=== PATIENT | male | born 1980 | race Caucasian/White ===

== ENCOUNTER 2020-06-23 09:49 | Emergency (ER) | payer MEDICAID ==
[~2020-06-23] VITALS: Ht 175.3 cm; Wt 85.0 kg
[2020-06-23 10:32] LABS: BASOPHILS % (AUTO) 0.6 % (0-1); EOSINOPHILS # (AUTO) 0.1 X10'3 (0-0.9); EOSINOPHILS % (AUTO) 2.2 % (0-6); HEMATOCRIT 39.4 % (42.0-52.0); HEMOGLOBIN 13.1 g/dl (14.0-17.9); LYMPHOCYTES # (AUTO) 1.2 X10'3 (1.1-4.8); LYMPHOCYTES % (AUTO) 22.9 % (21-51); MEAN CORPUSCULAR HGB CONC 33.2 g/dL (33.0-36.5); MEAN CORPUSCULAR VOLUME 87.2 FL (78-98); MONOCYTES # (AUTO) 0.7 X10'3 (0-0.9); NEUTROPHILS # (AUTO) 3.2 X10'3 (1.8-7.7); NEUTROPHILS % (AUTO) 61.3 % (42-75); PLATELET COUNT 228 X10'3 (140-440); RED BLOOD COUNT 4.52 X10'6 (4.70-6.10); RED CELL DISTRIBUTION WIDTH 13.8 % (11.5-14.5); WHITE BLOOD COUNT 5.2 X10'3 (4.5-11.0)
[2020-06-23] MEDS ORDERED: normal saline 1000ML IV soln IV ONE (10:35)
[2020-06-23 10:53] LABS: ALANINE AMINOTRANSFERASE 37 U/L (12-78); ALBUMIN 3.4 G/DL (3.4-5.0); ALBUMIN/GLOBULIN RATIO 1.2 (1.1-1.5); ALKALINE PHOSPHATASE 82 IU/L (46-116); ANION GAP 6 (8-16); ASPARTATE AMINO TRANSFERASE 34 U/L (10-37); BILIRUBIN,TOTAL 0.2 MG/DL (0.1-1.0); BLOOD UREA NITROGEN 10 MG/DL (7-18); BUN/CREATININE RATIO 11.5 (5.4-32.0); CALCIUM 8.3 MG/DL (8.5-10.1); CHLORIDE 107 MMOL/L (99-107); CREATININE 0.87 MG/DL (0.60-1.10); GLUCOSE 95 MG/DL (70-104); POTASSIUM 3.5 MMOL/L (3.5-5.1); SODIUM 143 MMOL/L (135-145); TOTAL CARBON DIOXIDE 30.3 MMOL/L (24-32); TOTAL PROTEIN 6.3 G/DL (6.4-8.2); eGFR > 90 ML/MIN
[2020-06-23] MEDS ORDERED: iohexol 350MG/ML 100ml bottle IV ONE (10:54)
[2020-06-23 12:08] VITALS: BP 137/89
[2020-06-23] MEDS ORDERED: dexamethasone sod phosphate 10mg/ml inj IV STA (12:59)
[2020-06-23] MEDS ORDERED: PRED10TA23 PO (13:07)
[2020-06-23] MEDS ORDERED: AZIT500T PO (13:07)
[2020-06-23] MEDS ORDERED: ALBU6.7H9 INH (13:07)
== END 2020-06-23 13:25 | disposition home or self-care (01) ==
LOC: ER 09:50
DX: U07.1 COVID-19 (principal); R07.89 Other chest pain; R55 Syncope and collapse; F15.90 Other stimulant use, unspecified, uncomplicated; F17.200 Nicotine dependence, unspecified, uncomplicated; Z59.0 Homelessness; Z88.0 Allergy status to penicillin; Z79.2 Long term (current) use of antibiotics; Z79.899 Other long term (current) drug therapy
CPT/HCPCS: 36415; 71045; 71275; 80053; 83880; 84145; 84484; 85025; 87635; 93005; 93308; 96360; 99285; C9803; J7030; Q9967

== ENCOUNTER 2020-08-08 14:04 | Emergency (ER) | payer MEDICAID ==
[~2020-08-08] VITALS: Ht 172.7 cm; Wt 77.3 kg
[~2020-08-08 14:04] MED LIST: ALBU6.7H9 INH
[2020-08-08] MEDS ORDERED: DOXY100C43 PO (14:28)
[2020-08-08] MEDS ORDERED: ALBU18HF2 INH (14:28)
[2020-08-08] MEDS ORDERED: PRED20TA PO (14:28)
== END 2020-08-08 14:55 | disposition home or self-care (01) ==
LOC: ER 14:04
DX: J20.9 Acute bronchitis, unspecified (principal); Z20.822 Contact with and (suspected) exposure to COVID-19; B34.9 Viral infection, unspecified; R50.9 Fever, unspecified; R05 Cough; F15.90 Other stimulant use, unspecified, uncomplicated; Z72.0 Tobacco use; Z59.0 Homelessness; Z88.0 Allergy status to penicillin; Z79.2 Long term (current) use of antibiotics; Z79.899 Other long term (current) drug therapy
CPT/HCPCS: 36415; 99283; U0003

== ENCOUNTER 2021-01-24 06:19 | Emergency (ER) | payer SELFPAY ==
[~2021-01-24] VITALS: Ht 175.3 cm; Wt 79.5 kg
[~2021-01-24 06:19] MED LIST changes: +ALBU18HF2 INH
[2021-01-24] MEDS ORDERED: LORazepam 1 MG tablet PO ONE (12:05)
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
[2021-01-24 12:07] VITALS: BP 109/73
== END 2021-01-24 12:05 | disposition left against medical advice (07) ==
LOC: ER 06:19
DX: F20.9 Schizophrenia, unspecified (principal); F15.90 Other stimulant use, unspecified, uncomplicated; Z59.0 Homelessness; Z88.0 Allergy status to penicillin; Z79.899 Other long term (current) drug therapy
CPT/HCPCS: 99281; 99284

== ENCOUNTER → 2021-02-07 | Emergency (ER) | payer SELFPAY ==
[~2021-02-07] VITALS: Ht 175.3 cm; Wt 75.0 kg
[2021-02-07 20:23] VITALS: BP 126/87
== END | disposition home or self-care (01) ==
LOC: ER 19:54
DX: F22 Delusional disorders (principal); F15.90 Other stimulant use, unspecified, uncomplicated; Z59.0 Homelessness; Z88.0 Allergy status to penicillin; Z79.899 Other long term (current) drug therapy
CPT/HCPCS: 99281

== ENCOUNTER 2021-04-15 12:56 | Emergency (ER) | payer MEDICAID ==
[~2021-04-15] VITALS: Ht 172.7 cm; Wt 77.3 kg
[2021-04-15 13:28] VITALS: BP 131/87
[2021-04-15] MEDS ORDERED: normal saline 1000ML IV soln IV ONE (13:35)
[2021-04-15] MEDS ORDERED: pantoprazole 40 MG vial IV ONE (13:35)
[2021-04-15] MEDS ORDERED: famotidine/PF 10 mg/ml inj IV ONE (13:35)
[2021-04-15 14:04] LABS: BASOPHILS % (AUTO) 0.2 % (0-1); EOSINOPHILS # (AUTO) 0.1 X10'3 (0-0.9); EOSINOPHILS % (AUTO) 0.4 % (0-6); HEMATOCRIT 46.5 % (42.0-52.0); HEMOGLOBIN 15.6 g/dl (14.0-17.9); LYMPHOCYTES # (AUTO) 0.6 X10'3 (1.1-4.8); LYMPHOCYTES % (AUTO) 3.6 % (21-51); MEAN CORPUSCULAR HGB CONC 33.6 g/dL (33.0-36.5); MEAN CORPUSCULAR VOLUME 86.4 FL (78-98); MEAN PLATELET VOLUME 8.3 FL (7.4-10.4); MONOCYTES # (AUTO) 0.7 X10'3 (0-0.9); MONOCYTES % (AUTO) 4.5 % (2-12); NEUTROPHILS # (AUTO) 14.2 X10'3 (1.8-7.7); NEUTROPHILS % (AUTO) 91.3 % (42-75); PLATELET COUNT 315 X10'3 (140-440); RED BLOOD COUNT 5.38 X10'6 (4.70-6.10); RED CELL DISTRIBUTION WIDTH 14.3 % (11.5-14.5); WHITE BLOOD COUNT 15.5 X10'3 (4.5-11.0)
[2021-04-15 14:10] LABS: PARTIAL THROMBOPLASTIN TIME 27 SECONDS (22-32)
[2021-04-15 14:29] LABS: ALANINE AMINOTRANSFERASE 28 U/L (12-78); ALBUMIN 4.2 G/DL (3.4-5.0); ALBUMIN/GLOBULIN RATIO 1.3 (1.1-1.5); ALKALINE PHOSPHATASE 88 IU/L (46-116); ANION GAP 11 (8-16); ASPARTATE AMINO TRANSFERASE 24 U/L (10-37); BILIRUBIN,TOTAL 0.6 MG/DL (0.1-1.0); BLOOD UREA NITROGEN 11 MG/DL (7-18); CHLORIDE 104 MMOL/L (99-107); GLUCOSE 108 MG/DL (70-104); POTASSIUM 3.9 MMOL/L (3.5-5.1); SODIUM 143 MMOL/L (135-145); TOTAL CARBON DIOXIDE 27.9 MMOL/L (24-32); TOTAL PROTEIN 7.5 G/DL (6.4-8.2); eGFR 84 ML/MIN
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
--- NOTE | 2021-04-15 15:09 | NUR ---
CHARGE NURSE AT BEDSIDE EXPLAINING REASON FOR RECTAL EXAM. PT REFUSING TX. CHARGE EDUCATED PT ON RISKS OF GI BLEED AND AGAIN NECESSITY OF EXAM. PT STATING "THERE IS NO BLOOD. I HAVE COVID". NOTIFIED
[2021-04-15] MEDS ORDERED: ketorolac trometh. 30mg/ml inj. IV ONE (15:35)
[2021-04-15] MEDS ORDERED: ondansetron/PF 4mg/2ml inj IV ONE (15:35)
[2021-04-15] MEDS ORDERED: acetaminophen 325mg tablet PO ONE (15:35)
[2021-04-15] MEDS ORDERED: MELO-100 PO (15:39)
[2021-04-15] MEDS ORDERED: PANT-47 PO (15:39)
[2021-04-15] MEDS ORDERED: ONDA4TAB6 PO (15:39)
--- NOTE | 2021-04-15 15:56 | NUR ---
PT PULLED OUT IV. STATED HE DOES NOT WANT ANY MORE MEDICATION. SAID HE WAS READY TO GO. MD NOTIFIED. PT PROVIDED W/ DC PAPERS
[2021-04-15] MEDS ORDERED: pantoprazole 40MG/NS 100ML BAG 100 ML IV SCH (16:00)
== END 2021-04-15 16:02 | disposition home or self-care (01) ==
LOC: ER 12:57
DX: U07.1 COVID-19 (principal); R10.10 Upper abdominal pain, unspecified; K52.9 Noninfective gastroenteritis and colitis, unspecified; R11.10 Vomiting, unspecified; F15.90 Other stimulant use, unspecified, uncomplicated; Z59.00 Homelessness unspecified; Z88.0 Allergy status to penicillin; Z79.899 Other long term (current) drug therapy
CPT/HCPCS: 36415; 71045; 80053; 85025; 85610; 85730; 86885; 86900; 86901; 93005; 96374; 96375; 99285; C9113; J3490; J7030